=== PATIENT | male | born 1945 | race Caucasian/White ===

== ENCOUNTER 2016-06-17 11:52 | Outpatient (CLI) ==
[2016-06-17 12:20] LABS: ADD URINE MICROSCOPIC YES; BILIRUBIN,URINE Negative (NEGATIVE); KETONES,URINE Negative (NEGATIVE); LEUKOCYTE ESTERASE ,URINE 3+ (NEGATIVE); NITRITE,URINE Negative (NEGATIVE); PROTEIN,URINE 2+ (NEGATIVE); URINE, BLOOD 3+ (NEGATIVE)
== END 2016-06-17 11:53 | disposition home or self-care (01) ==
LOC: LAB 11:52
PROVIDERS: ATTEND Family Medicine
DX: R73.9 Hyperglycemia, unspecified (principal); R82.90 Unspecified abnormal findings in urine; R41.0 Disorientation, unspecified
CPT/HCPCS: 81001; 87086

== ENCOUNTER 2016-07-16 12:29 | Outpatient (CLI) | END 2016-07-16 12:30 | LOC: AMBL 12:29 | PROVIDERS: ATTEND Internal Medicine | DX: R41.82 Altered mental status, unspecified (principal); R11.2 Nausea with vomiting, unspecified; G82.20 Paraplegia, unspecified ==

== ENCOUNTER 2016-07-24 17:39 | Outpatient (CLI) | END 2016-07-24 17:40 | disposition home or self-care (01) | LOC: AMBL 17:39 | PROVIDERS: ATTEND Emergency Medicine | DX: R31.9 Hematuria, unspecified (principal); Z96.0 Presence of urogenital implants; G82.50 Quadriplegia, unspecified ==

== ENCOUNTER 2016-10-02 12:01 | Outpatient (CLI) | payer OTHER | END 2016-10-02 12:02 | LOC: AMBL 12:01 | PROVIDERS: ATTEND Internal Medicine | DX: R50.9 Fever, unspecified (principal); G82.50 Quadriplegia, unspecified; Z98.890 Other specified postprocedural states ==

== ENCOUNTER 2017-04-09 06:35 | Outpatient (CLI) | END 2017-04-09 06:36 | disposition short-term general hospital (02) | LOC: AMBL 06:35 | PROVIDERS: ATTEND Internal Medicine Geriatric Medicine | DX: R41.82 Altered mental status, unspecified (principal); E11.9 Type 2 diabetes mellitus without complications; G82.50 Quadriplegia, unspecified ==

== ENCOUNTER 2017-04-27 22:44 | Outpatient (CLI) | END 2017-04-27 22:45 | disposition short-term general hospital (02) | LOC: AMBL 22:44 | PROVIDERS: ATTEND Family Medicine | DX: R41.0 Disorientation, unspecified (principal) ==

== ENCOUNTER 2017-05-06 08:19 | Outpatient (CLI) | END 2017-05-06 08:20 | disposition home or self-care (01) | LOC: NONPT 08:19 | PROVIDERS: ATTEND Family Medicine | DX: A04.72 Enterocolitis due to Clostridium difficile, not specified as recurrent (principal) | CPT/HCPCS: 87015; 87045; 87493; 87899 ==

== ENCOUNTER 2017-05-16 14:37 | Outpatient (CLI) | END 2017-05-16 14:38 | disposition home or self-care (01) | LOC: NONPT 14:37 | PROVIDERS: ATTEND Family Medicine | DX: R39.89 Other symptoms and signs involving the genitourinary system (principal); Z96.0 Presence of urogenital implants | CPT/HCPCS: 87070 ==

== ENCOUNTER 2017-05-26 15:51 | Outpatient (CLI) | payer OTHER | END 2017-05-26 15:52 | disposition home or self-care (01) | LOC: LAB 15:51 | PROVIDERS: ATTEND Family Medicine | DX: A04.72 Enterocolitis due to Clostridium difficile, not specified as recurrent (principal) | CPT/HCPCS: 87493 ==

== ENCOUNTER 2017-05-28 13:24 | Outpatient (CLI) | END 2017-05-28 13:25 | disposition home or self-care (01) | LOC: AMBL 13:24 | PROVIDERS: ATTEND Internal Medicine | DX: T83.9XXA Unspecified complication of genitourinary prosthetic device, implant and graft, initial encounter (principal) ==

== ENCOUNTER 2017-06-08 19:27 | Outpatient (CLI) | END 2017-06-08 19:28 | disposition home or self-care (01) | LOC: NONPT 19:27 | PROVIDERS: ATTEND Family Medicine | DX: N19 Unspecified kidney failure (principal) | CPT/HCPCS: 80048; 85025 ==

== ENCOUNTER 2017-06-11 22:43 | Outpatient (CLI) | END 2017-06-11 22:44 | disposition home or self-care (01) | LOC: NONPT 22:43 | PROVIDERS: ATTEND Family Medicine | DX: A04.72 Enterocolitis due to Clostridium difficile, not specified as recurrent (principal) | CPT/HCPCS: 87015; 87045; 87493; 87899 ==

== ENCOUNTER 2017-06-12 11:15 | Outpatient (CLI) | END 2017-06-12 11:16 | disposition home or self-care (01) | LOC: NONPT 11:15 | PROVIDERS: ATTEND Family Medicine | DX: R31.9 Hematuria, unspecified (principal); Z87.440 Personal history of urinary (tract) infections | CPT/HCPCS: 81001; 87086; 87186 ==

== ENCOUNTER 2017-06-24 15:04 | Outpatient (CLI) | END 2017-06-24 15:05 | disposition short-term general hospital (02) | LOC: AMBL 15:04 | PROVIDERS: ATTEND Internal Medicine | DX: R50.9 Fever, unspecified (principal); R82.99 Other abnormal findings in urine; G82.20 Paraplegia, unspecified; Z96.0 Presence of urogenital implants ==

== ENCOUNTER 2017-07-30 09:10 | Outpatient (CLI) | END 2017-07-30 09:11 | disposition home or self-care (01) | LOC: NONPT 09:10 | PROVIDERS: ATTEND Family Medicine | DX: A49.02 Methicillin resistant Staphylococcus aureus infection, unspecified site (principal) | CPT/HCPCS: 87070; 87186 ==

== ENCOUNTER 2017-08-03 11:14 | Outpatient (CLI) | END 2017-08-03 11:15 | disposition short-term general hospital (02) | LOC: AMBL 11:14 | PROVIDERS: ATTEND Internal Medicine | DX: R55 Syncope and collapse (principal) ==

== ENCOUNTER 2017-08-25 10:02 | Outpatient (CLI) ==
--- NOTE | 2017-08-25 12:18 | US ---
Exam: Mosley-scale and color ultrasonographic evaluation of the scrotum and testicles. Comparison: None available. Reason for exam: Right testicular pain x 2 days FINDINGS: The right testicle measures approximately 4.72 x 3.48 x 3.06 cm. There is a 3.09 x 2.63 x 2.55 cm complex appearing mass in the right testicular parenchyma with surrounding increased vascula rity. The right epididymal head measures 0.64 cm. There is a 0.20 x 0.27 x 0.18 cm right epididymal cyst. The right scrotal wall measures 0.61 cm. The left testicle measures approximately 3.29 x 1.83 x 2.60 cm with normal appearing echotexture and normal vascular flow. No parenchymal mass lesion is seen in the left testicle. The left epididymal head measures 0.92 cm The left scrotal wall measures 0.58 cm. Impression: 3 cm right parenchymal complex testicular mass with surrounding vascularity. Imaging findings can be seen with infection, neoplasia, and infarct. Urologic consultation is recommended. Report faxed at 1214 hours on 08/25/2017.
== END 2017-08-25 10:03 | disposition home or self-care (01) ==
LOC: RAD 10:02
PROVIDERS: ATTEND Family Medicine
DX: N50.811 Right testicular pain (principal); N50.89 Other specified disorders of the male genital organs

== ENCOUNTER 2017-09-12 02:18 | Outpatient (CLI) | payer OTHER | END 2017-09-12 02:19 | disposition short-term general hospital (02) | LOC: AMBL 02:18 | PROVIDERS: ATTEND Family Medicine | DX: T83.83XA Hemorrhage due to genitourinary prosthetic devices, implants and grafts, initial encounter (principal); R53.1 Weakness; R03.1 Nonspecific low blood-pressure reading; Z74.01 Bed confinement status ==

== ENCOUNTER 2017-09-24 11:36 | Outpatient (CLI) | payer OTHER | END 2017-09-24 11:37 | disposition short-term general hospital (02) | LOC: AMBL 11:36 | PROVIDERS: ATTEND Emergency Medicine | DX: R40.20 Unspecified coma (principal); R06.89 Other abnormalities of breathing; R00.1 Bradycardia, unspecified ==

== ENCOUNTER 2017-09-24 15:49 | Outpatient (CLI) | payer OTHER | END 2017-09-24 15:50 | LOC: AMBL 15:49 | PROVIDERS: ATTEND Emergency Medicine | DX: R40.20 Unspecified coma (principal); R00.1 Bradycardia, unspecified; R06.89 Other abnormalities of breathing; R82.90 Unspecified abnormal findings in urine ==